=== PATIENT | female | born 1950 | race Caucasian/White ===

== ENCOUNTER 2020-07-25 09:15 | Emergency (ER) | payer MEDICARE, BC ==
[2020-07-25] MEDS ORDERED: Aspirin 81 MG Tab.Chew PO ONE (09:43)
--- NOTE | 2020-07-25 09:43 | EDM.PDOC ---
ED HPI GENERAL MEDICAL PROBLEM - General Chief Complaint: Chest Pain Stated Complaint: CHEST PAIN X 1 WEEK Time Seen by Provider: 07/25/20 09:35 - History of Present Illness INITIAL COMMENTS - FREE TEXT/NARRATIVE: 70-year-old female presents the emergency room with chest pain. This pain is been going on for about a week now. And does not seem to get any better. The patient was checked for Covid on Monday and treated for a sinus infection. On Monday she got the results of her Covid screen which were negative. Not had any fevers or chills she has had this chest discomfort. She describes it as burning sensation beneath her breastbone. This pain does not radiate into her shoulders is not associated with shortness of breath nausea or vomiting. Patient has no history of coronary artery disease. Her, the patient has a history of a racing heart she takes diltiazem and flecainide for this. She has some underlying lung disease and she is being worked up for alpha-1 antitrypsin deficiency as she has a family history of this. She is not had any lower extremity edema. She has not noticed any palpitations. Patient does not smoke and has never been a smoker. She is not aware of any family history of coronary artery disease. Middle Chest Pain Score (Numeric/FACES): 8 - Related Data Allergies Allergy/AdvReac Type Severity Reaction Status Date / Time metronidazole [From Flagyl] AdvReac Severe Stomach Verified 07/25/20 09:27 Upset Home Meds: Home Meds Albuterol [Ventolin HFA] 2 puff INH Q4H PRN 07/25/20 [History] Ampicillin [Principen] 0 mg PO BID 07/25/20 [History] Aspirin [Halfprin] 1 tab PO DAILY 07/25/20 [History] Budesonide/Formoterol Fumarate [Budesonide-Formoterol 80-4.5] 2 inh IH BID 07/25/20 [History] Calcium Carb, Citrate/Vit D3 [Calcium + D3 ER Tablet] 1 each PO DAILY 07/25/20 [History] Diltiazem HCl [Diltiazem 24Hr Cd] 240 mg PO DAILY 07/25/20 [History] Flecainide [Tambocor] 50 mg PO Q12H 07/25/20 [History] Fluticasone Propionate 2 inh NASBOTH DAILY 07/25/20 [History] Montelukast [Singulair] 10 mg PO DAILY 07/25/20 [History] Pantoprazole Sodium [Protonix] 20 mg PO DAILY 07/25/20 [History] Sodium Chlor,Bicarb/Nasl Rinse [Nasadock Plus Kit] 1 each NS BID 07/25/20 [History] Past Medical History HEENT History: Reports: Other (See Below) Other HEENT History: Pills stick in throat. 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 Social & Family History - Tobacco Use Tobacco Use Status *Q: Never Tobacco User - Caffeine Use Caffeine Use: Reports: Coffee - Recreational Drug Use Recreational Drug Use: No ED ROS GENERAL - Review of Systems Review Of Systems: See Below Constitutional: Reports: No Symptoms HEENT: Reports: Sinus Problem (This is much better after getting treatment) Respiratory: Reports: No Symptoms Cardiovascular: Reports: Chest Pain. Denies: No Symptoms Endocrine: Reports: No Symptoms GI/Abdominal: Reports: No Symptoms : Reports: No Symptoms, Other (Burning sensation in her chest) Musculoskeletal: Reports: No Symptoms Skin: Reports: No Symptoms Neurological: Reports: No Symptoms Psychiatric: Reports: No Symptoms Hematologic/Lymphatic: Reports: No Symptoms ED EXAM, GENERAL - Physical Exam Exam: See Below Exam Limited By: No Limitations General Appearance: Alert, No Apparent Distress Head: Atraumatic, Normocephalic Neck: Normal Inspection, Supple, Non-Tender, Full Range of Motion Respiratory/Chest: No Respiratory Distress, Lungs Clear, Normal Breath Sounds Cardiovascular: Regular Rate, Rhythm, No Edema, No Murmur GI/Abdominal: Normal Bowel Sounds, Soft, Non-Tender Extremities: Normal Inspection, Normal Range of Motion, Non-Tender Neurological: Alert, Oriented, Normal Cognition Psychiatric: Normal Affect, Normal Mood Course - Vital Signs Last Recorded V/S: Last Vital Signs Temp 36.3 C 07/25/20 09:23 Pulse 87 07/25/20 09:23 Resp 16 07/25/20 09:23 BP 154/74 H 07/25/20 09:23 Pulse Ox 97 07/25/20 09:23 - Orders/Labs/Meds Labs: Laboratory Tests 07/25/20 07/25/20 07/25/20 Range/Units 09:25 09:25 09:25 WBC 7.88 (3.98-10.04) K/mm3 RBC 4.50 (3.98-5.22) M/mm3 Hgb 12.9 (11.2-15.7) gm/dl Hct 40.1 (34.1-44.9) % MCV 89.1 (79.4-94.8) fl MCH 28.7 (25.6-32.2) pg MCHC 32.2 (32.2-35.5) g/dl RDW Std Deviation 45.3 (36.4-46.3) fL Plt Count 287 (182-369) K/mm3 MPV 9.7 (9.4-12.3) fl Neut % (Auto) 62.8 (34.0-71.1) % Lymph % (Auto) 27.8 (19.3-51.7) % Swisher % (Auto) 8.2 (4.7-12.5) % Eos % (Auto) 0.8 (0.7-5.8) Baso % (Auto) 0.3 (0.1-1.2) % Neut # (Auto) 4.95 (1.56-6.13) K/mm3 Lymph # (Auto) 2.19 (1.18-3.74) K/mm3 Swisher # (Auto) 0.65 H (0.24-0.36) K/mm3 Eos # (Auto) 0.06 (0.04-0.36) K/mm3 Baso # (Auto) 0.02 (0.01-0.08) K/mm3 PT 10.7 (9.7-12.0) SECONDS INR 1.00 APTT 24.6 (21.7-31.4) SECONDS D-Dimer, Quantitative (0.19-0.50) mg/L Sodium 139 (136-145) mEq/L Potassium 3.8 (3.5-5.1) mEq/L Chloride 102 (98-107) mEq/L Carbon Dioxide 27 (21-32) mEq/L Anion Gap 13.8 (5-15) BUN 15 (7-18) mg/dL Creatinine 0.9 (0.55-1.02) mg/dL Est Cr Clr Drug Dosing 46.00 mL/min Estimated GFR (MDRD) > 60 (>60) mL/min BUN/Creatinine Ratio 16.7 (14-18) Glucose 102 (80-115) mg/dL Calcium 9.2 (8.5-10.1) mg/dL Total Bilirubin 0.5 (0.2-1.0) mg/dL AST 19 (15-37) U/L ALT 23 (14-59) U/L Alkaline Phosphatase 55 (46-116) U/L Troponin I < 0.017 (0.00-0.056) ng/mL Total Protein 7.3 (6.4-8.2) g/dl Albumin 4.1 (3.4-5.0) g/dl Globulin 3.2 gm/dL Albumin/Globulin Ratio 1.3 (1-2) 07/25/20 Range/Units 09:25 WBC (3.98-10.04) K/mm3 RBC (3.98-5.22) M/mm3 Hgb (11.2-15.7) gm/dl Hct (34.1-44.9) % MCV (79.4-94.8) fl MCH (25.6-32.2) pg MCHC (32.2-35.5) g/dl RDW Std Deviation (36.4-46.3) fL Plt Count (182-369) K/mm3 MPV (9.4-12.3) fl Neut % (Auto) (34.0-71.1) % Lymph % (Auto) (19.3-51.7) % Swisher % (Auto) (4.7-12.5) % Eos % (Auto) (0.7-5.8) Baso % (Auto) (0.1-1.2) % Neut # (Auto) (1.56-6.13) K/mm3 Lymph # (Auto) (1.18-3.74) K/mm3 Swisher # (Auto) (0.24-0.36) K/mm3 Eos # (Auto) (0.04-0.36) K/mm3 Baso # (Auto) (0.01-0.08) K/mm3 PT (9.7-12.0) SECONDS INR APTT (21.7-31.4) SECONDS D-Dimer, Quantitative 0.48 (0.19-0.50) mg/L Sodium (136-145) mEq/L Potassium (3.5-5.1) mEq/L Chloride (98-107) mEq/L Carbon Dioxide (21-32) mEq/L Anion Gap (5-15) BUN (7-18) mg/dL Creatinine (0.55-1.02) mg/dL Est Cr Clr Drug Dosing mL/min Estimated GFR (MDRD) (>60) mL/min BUN/Creatinine Ratio (14-18) Glucose (80-115) mg/dL Calcium (8.5-10.1) mg/dL Total Bilirubin (0.2-1.0) mg/dL AST (15-37) U/L ALT (14-59) U/L Alkaline Phosphatase (46-116) U/L Troponin I (0.00-0.056) ng/mL Total Protein (6.4-8.2) g/dl Albumin (3.4-5.0) g/dl Globulin gm/dL Albumin/Globulin Ratio (1-2) Meds: Medications Discontinued Medications Generic Name Dose Route Start Last Admin Trade Name Freq PRN Reason Stop Dose Admin Aspirin 324 mg 07/25/20 09:43 07/25/20 10:03 Aspirin PO 07/25/20 09:44 324 mg ONETIME ONE Administration Al Hydroxide/Mg Hydroxide 30 0 ml 07/25/20 11:18 07/25/20 11:26 ml/ Lidocaine HCl 15 ml PO 07/25/20 11:19 45 ml ONETIME ONE Administration - Re-Assessments/Exams Free Text/Narrative Re-Assessment/Exam: 07/25/20 13:38 Chest x-ray is unrevealing troponin D-dimer negative. The patient does have a history of gastroesophageal reflux she was given a GI cocktail and she did not notice much improvement with this. Did discuss further lab testing such as a repeat troponin at this point however patient agrees that with this pain ongoing like this is probably not can tell us anything new. She does have a history of reflux and is taking Protonix 20 mg daily for this in case she has atrophic gastritis and recommended she start famotidine 20 mg twice a day and see if this helps the patient is in agreement to doing this and would like to go home Departure - Departure Time of Disposition: 13:40 Disposition: Home, Self-Care 01 Clinical Impression: Gastroesophageal reflux Referrals: PCP,Not In Area [Primary Care Provider] - Forms: ED Department Discharge Additional Instructions: Return to the emergency room with any questions problems or worsening symptoms. 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 Take 1 twice daily. If this helps significantly consider stopping the Protonix. Follow-up with your regular healthcare provider this next week. Discuss if cardiac stress testing would be indicated. And discuss improvements with your chest discomfort. Sepsis Event Note (ED) - Evaluation Sepsis Screening Result: No Definite Risk - Focused Exam Vital Signs: Vital Signs Temp Pulse Resp BP Pulse Ox 07/25/20 09:23 36.3 C 87 16 154/74 H 97
--- NOTE | 2020-07-25 10:20 | CR ---
Chest: Portable view of the chest was obtained. Comparison: No prior chest imaging is available. Findings: Heart and mediastinum: Heart and mediastinum are within normal limits for portable technique. No mediastinal mass is seen. Lungs: Minimal density is noted within the left upper lung most likely due to atelectasis or scarring. Lungs otherwise are clear without acute parenchymal change. Osseous: Prior right shoulder surgery is seen. No acute osseous finding is seen. Impression: 1. Findings as noted above. 2. Nothing acute is appreciated. Diagnostic code #2
[2020-07-25] MEDS ORDERED: Alum Hydrox/Mag Hydrox/Simeth 30 ML, Lidocaine 2% 15 ML PO ONE ×2 (11:18)
== END 2020-07-25 13:45 | disposition home or self-care (01) ==
LOC: JD.ED 09:15
DX: K21.9 Gastro-esophageal reflux disease without esophagitis (principal); J44.9 Chronic obstructive pulmonary disease, unspecified; Z79.82 Long term (current) use of aspirin; Z79.899 Other long term (current) drug therapy; Z88.1 Allergy status to other antibiotic agents
CPT/HCPCS: 36415; 71045; 80053; 84484; 85025; 85379; 85610; 85730; 99285; A9270; 99283

== ENCOUNTER 2020-08-25 10:35 | Emergency (ER) | payer MEDICARE, BC ==
[2020-08-25] MEDS ORDERED: Ketorolac 30 MG/ML SDV IM ONE (11:04)
[2020-08-25] MEDS ORDERED: Orphenadrine 100 MG Tab.ER PO STA (11:04)
--- NOTE | 2020-08-25 11:13 | EDM.PDOC ---
ED HPI GENERAL MEDICAL PROBLEM - General Chief Complaint: Back Pain or Injury Stated Complaint: BACK PAIN Time Seen by Provider: 08/25/20 10:47 Source of Information: Reports: Patient History Limitations: Reports: No Limitations - History of Present Illness INITIAL COMMENTS - FREE TEXT/NARRATIVE: 70-year-old female presents to the emergency department with complaints of upper back pain between her shoulder blades. Patient states this has been ongoing for the past 3 days but today has become unbearable. Patient states she developed this pain 3 days ago when she was taking down the [employer] tree and reaching for the ornaments. States the pain is so severe that she is unable to take a deep breath. Denies any history of trauma or injury. Reports chronic lower back pain and left hip pain. Has not been taking any medications for the pain has tried ice and heat and neither of them have helped her. Middle Back Pain Score (Numeric/FACES): 9 - Related Data Allergies Allergy/AdvReac Type Severity Reaction Status Date / Time metronidazole [From Flagyl] AdvReac Severe Stomach Verified 08/25/20 10:52 Upset Home Meds: Home Meds Albuterol [Ventolin HFA] 2 puff INH Q4H PRN 07/25/20 [History] Ampicillin [Principen] 0 mg PO BID 07/25/20 [History] Aspirin [Halfprin] 1 tab PO DAILY 07/25/20 [History] Budesonide/Formoterol Fumarate [Budesonide-Formoterol 80-4.5] 2 inh IH BID 07/25/20 [History] Calcium Carb, Citrate/Vit D3 [Calcium + D3 ER Tablet] 1 each PO DAILY 07/25/20 [History] Diltiazem HCl [Diltiazem 24Hr Cd] 240 mg PO DAILY 07/25/20 [History] Flecainide [Tambocor] 50 mg PO Q12H 07/25/20 [History] Fluticasone Propionate 2 inh NASBOTH DAILY 07/25/20 [History] Montelukast [Singulair] 10 mg PO DAILY 07/25/20 [History] Pantoprazole Sodium [Protonix] 20 mg PO DAILY 07/25/20 [History] Sodium Chlor,Bicarb/Nasl Rinse [Nasadock Plus Kit] 1 each NS BID 07/25/20 [History] traMADol [Ultram] 50 mg PO Q6H PRN #20 tab 08/25/20 [Rx] Past Medical History HEENT History: Reports: Other (See Below) Other HEENT History: Pills stick in throat. 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 Social & Family History - Tobacco Use Tobacco Use Status *Q: Never Tobacco User - Caffeine Use Caffeine Use: Reports: Coffee ED ROS GENERAL - Review of Systems Review Of Systems: See Below Constitutional: Reports: No Symptoms HEENT: Reports: No Symptoms, Glasses Respiratory: Reports: No Symptoms Cardiovascular: Reports: No Symptoms Endocrine: Reports: No Symptoms GI/Abdominal: Reports: No Symptoms : Reports: No Symptoms Musculoskeletal: Reports: Back Pain (Between her shoulder blades) Skin: Reports: No Symptoms Neurological: Reports: No Symptoms Psychiatric: Reports: No Symptoms Hematologic/Lymphatic: Reports: No Symptoms Immunologic: Reports: No Symptoms ED EXAM, UPPER BACK/NECK PAIN - Physical Exam Exam: See Below Exam Limited By: No Limitations General Appearance: Alert, WD/WN, No Apparent Distress Eye Exam: Bilateral Eye: PERRL Ears Exam: Hearing Grossly Normal Nose Exam: Normal Inspection Throat/Mouth Exam: Normal Voice, No Airway Compromise Head Exam: Atraumatic, Normocephalic Neck Exam: Non-Tender, Full Range of Motion, Normal Alignment, Normal Inspection, Paraspinous Muscle Tender (along the T3-T4). No: Spinous Processes Tender, Tender Midline GI/Abdominal: Normal Bowel Sounds, Soft, Non-Tender, No Distention (Female) Exam: Deferred Rectal (Female) Exam: Deferred Back Exam: Normal Inspection, Full Range of Motion Extremities: Normal Inspection, Normal Range of Motion, Non-Tender, No Pedal Edema, Normal Capillary Refill Neurologic: No Motor/Sensory Deficits, Alert, Normal Mood/Affect, Oriented x 3 Psychiatric: Normal Affect, Anxious Skin Exam: Normal Color, Warm/Dry Lymphatic: No Adenopathy Course - Vital Signs Text/Narrative:: I have ordered an x-ray of the cervical and thoracic spine. Patient will also receive Norflex 100 mg p.o. x1 dose and Toradol 30 mg IM x1 dose. Last Recorded V/S: Last Vital Signs Temp 97.8 F 08/25/20 10:50 Pulse 87 08/25/20 10:50 Resp 16 08/25/20 10:50 BP 129/79 08/25/20 10:50 Pulse Ox 98 08/25/20 10:50 - Orders/Labs/Meds Meds: Medications Discontinued Medications Generic Name Dose Route Start Last Admin Trade Name Kashmirq PRN Reason Stop Dose Admin Ketorolac Tromethamine 30 mg 08/25/20 11:04 08/25/20 11:15 Toradol IM 08/25/20 11:05 30 mg ONETIME ONE Administration Orphenadrine Citrate 100 mg 08/25/20 11:04 08/25/20 11:15 Norflex PO 08/25/20 11:05 100 mg STAT STA Administration - Radiology Interpretation Free Text/Narrative:: Cervical spine AP lateral and odontoid views radiology impression: 1. Diffuse degenerative change as noted above. Severe disc space narrowing is noted at C3- 4 through C7-T1. Anterior osteophytes are seen at these levels. Slight scattered posterior osteophytes are also noted. No abnormal subluxation is seen. 2. Scoliosis is present. Thoracic spine AP and lateral views radiology impression: 1. Mild scattered disc space narrowing and scoliosis. 2. Nothing acute is definitely seen. - Re-Assessments/Exams Free Text/Narrative Re-Assessment/Exam: 08/25/20 12:05 Nothing acute is noted or appreciated on cervical and thoracic x-rays. Patient will be discharged to home. Patient will be sent home with prescriptions for Norflex and tramadol. She will need to follow-up with her primary care provider. Departure - Departure Time of Disposition: 12:07 Disposition: Home, Self-Care 01 Condition: Good Clinical Impression: Back pain Qualifiers: Back pain location: thoracic back pain Chronicity: acute Back pain laterality: right Qualified Code(s): M54.6 - Pain in thoracic spine - Discharge Information Prescriptions: traMADol [Ultram] 50 mg PO Q6H PRN #20 tab PRN Reason: Pain (Moderate 4-6) Instructions: Acute Back Pain, Adult, Pain Medicine Instructions, [id number] Referrals: PCP,Not In Area [Primary Care Provider] - Forms: ED Department Discharge Additional Instructions: You were seen in the emergency department with complaints of back pain between your shoulder blades. X-ray does not reveal anything acute. You will need to follow-up with your primary care provider regarding this. Try using ice and heat to relieve the discomfort. You may take Tylenol 650 mg every 6 hours or ibuprofen 600 mg every 6 hours as needed for the discomfort. For more severe pain that is not relieved by these you can take tramadol 50 mg every 6 hours as needed. Please return to the emergency department should your condition worsen or change. Hospital Business Risk Consultant will contact you regarding consult. Sepsis Event Note (ED) - Evaluation Sepsis Screening Result: No Definite Risk - Focused Exam Vital Signs: Vital Signs Temp Pulse Resp BP Pulse Ox 08/25/20 10:50 97.8 F 87 16 129/79 98
--- NOTE | 2020-08-25 11:52 | CR ---
Thoracic spine: AP and lateral views of the thoracic spine were obtained. Comparison: No prior thoracic spine imaging. Scoliosis is noted. Mild disc space narrowing is scattered within the thoracic spine. Osteopenia is present. No discrete fracture or subluxation is seen. Impression: 1. Mild scattered disc space narrowing and scoliosis. 2. Nothing acute is definitely seen. Diagnostic code #2
--- NOTE | 2020-08-25 11:52 | CR ---
Cervical spine: AP, lateral and odontoid views of the cervical spine were obtained. Severe disc space narrowing is noted at C3-4 through C7-T1. Anterior osteophytes are seen at these levels. Slight scattered posterior osteophytes are also noted. No abnormal subluxation is seen. Scoliosis is noted within the spine. Impression: 1. Diffuse degenerative change as noted above. 2. Scoliosis is present. Diagnostic code #2
== END 2020-08-25 13:19 | disposition home or self-care (01) ==
LOC: JD.ED 10:35
DX: M54.6 Pain in thoracic spine (principal); J44.9 Chronic obstructive pulmonary disease, unspecified; K21.9 Gastro-esophageal reflux disease without esophagitis; Z88.1 Allergy status to other antibiotic agents; Z79.82 Long term (current) use of aspirin; Z79.899 Other long term (current) drug therapy
CPT/HCPCS: 72040; 72070; 96372; 99283; A9270; J1885

== ENCOUNTER 2021-06-19 09:14 | Emergency (ER) | payer MEDICARE, BC ==
--- NOTE | 2021-06-19 09:42 | EDM.PDOC ---
ED HPI GENERAL MEDICAL PROBLEM - General Chief Complaint: Respiratory Problem Stated Complaint: HEADACHE/DIZZY/NAUSEA/SOB Time Seen by Provider: 06/19/21 09:41 Source of Information: Reports: Patient History Limitations: Reports: No Limitations - History of Present Illness INITIAL COMMENTS - FREE TEXT/NARRATIVE: 71-year-old female presents to the ED with complaints of a persistent frontal headache daily for several months. History of recurrent sinus infection with previous sinus surgery with no benefit. Persistent postnasal drip and facial pressure compatible with sinus infection. Paroxysmal productive cough of white sputum. No noted fever or chills. Continues to lose weight slowly in spite of eating fairly well. Feels lightheaded and dizzy with mild component of vertigo symptoms. No falls. Onset: Other (Persistent chronic headache daily for many months. Associated persistent postnasal drip facial pressure discomfort compatible sinus infection. Associated sense of vertigo and feeling off balance.) Duration: Chronic, Getting Worse Location: Reports: Head, Face, Chest (Paroxysmal productive cough of white sputum) Quality: Reports: Ache (Persistent throbbing headache pain primarily bifrontal.), Throbbing Severity: Moderate Improves with: Reports: Medication (Tylenol helps a bit.) Worsens with: Reports: Other (She believes bending over makes the headache perhaps a little bit worse.) Context: Denies: Activity, Exercise, Lifting, Sick Contact, Trauma, Other Associated Symptoms: Reports: Cough, cough w sputum, Malaise. 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: Acetaminophen Headache Pain Score (Numeric/FACES): 5 - Related Data Allergies Allergy/AdvReac Type Severity Reaction Status Date / Time metronidazole [From Flagyl] AdvReac Severe Stomach Verified 06/19/21 09:47 Upset Home Meds: Home Meds Albuterol [Ventolin HFA] 2 puff INH Q4H PRN 07/25/20 [History] Budesonide/Formoterol Fumarate [Budesonide-Formoterol 80-4.5] 2 inh IH BID 07/25/20 [History] Calcium Carb, Citrate/Vit D3 [Calcium + D3 ER Tablet] 1 each PO DAILY 07/25/20 [History] Diltiazem HCl [Diltiazem 24Hr Cd] 240 mg PO DAILY 07/25/20 [History] Flecainide [Tambocor] 50 mg PO Q12H 07/25/20 [History] Fluticasone Propionate 2 inh NASBOTH DAILY 07/25/20 [History] Montelukast [Singulair] 10 mg PO DAILY 07/25/20 [History] Benzonatate [Tessalon Perle] 1 cap PO TID PRN 06/19/21 [History] estradioL [Yuvafem] 10 mg PO ASDIRECTED 06/19/21 [History] guaiFENesin [Mucinex] 600 mg PO BID 06/19/21 [History] predniSONE [Prednisone] 1 tab PO ASDIRECTED 06/19/21 [History] Past Medical History HEENT History: Reports: Sinusitis (Chronic sinusitis), Other (See Below) Other HEENT History: Pills stick in throat. 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 Denies: Fever, Chills, Decreased Appetite HEENT: Reports: Glasses, Rhinitis (Allergic rhinitis), Sinus Problem (Chronic sinus), Other (Postnasal drip) Respiratory: Reports: Cough (Persistent productive cough of white sputum). Denies: Wheezing, Pleuritic Chest Pain, Hemoptysis, Other Cardiovascular: Reports: Blood Pressure Problem, Lightheadedness. Denies: Claudication, Dyspnea on Exertion, Orthopnea, Palpitations Endocrine: Reports: Fatigue GI/Abdominal: Reports: No Symptoms : Reports: No Symptoms Musculoskeletal: Reports: Other (Mild arthritis knees hips neck and back) Skin: Reports: No Symptoms Neurological: Reports: Dizziness, Headache (Diffuse persistent frontal headache for many months). Denies: Confusion, Paresthesia, Pre-Existing Deficit, Seizure, Syncope, Tingling, Tremors, Trouble Speaking, Difficulty Walking, Weakness Psychiatric: Reports: No Symptoms Hematologic/Lymphatic: Reports: No Symptoms Immunologic: Reports: No Symptoms ED EXAM, GENERAL - Physical Exam Exam: See Below Exam Limited By: No Limitations General Appearance: Alert, WD/WN, No Apparent Distress, Anxious, Other (Mildly anxious temperature is 36.2 degrees heart rate 110 and sinus respiratory 20 with O2 sats of 96% room air BP 1 5292) Eye Exam: Bilateral Eye: Normal Inspection (No blepharal pallor or scleral icterus), PERRL Ears: Normal TMs Nose: Nasal Swelling (Swelling of the nasal turbinates middle and superior bilaterally) Throat/Mouth: Normal Inspection, Normal Lips, Normal Teeth, Normal Oropharynx Head: Atraumatic, Normocephalic Neck: Normal Inspection, Supple, Non-Tender, Full Range of Motion. No: Lymphadenopathy (L), Lymphadenopathy (R) Respiratory/Chest: Lungs Clear, Normal Breath Sounds, No Accessory Muscle Use, Respiratory Distress (Mild tachypnea), Other (Adductive sounding cough and she reports bringing up white sputum chronically.) Cardiovascular: Normal Peripheral Pulses, Regular Rate, Rhythm, No Edema, No Gallop, No Murmur, No Rub Peripheral Pulses: 2+: Posterior Tibial (L), Posterior Tibial (R), Dorsalis Pedis (L), Dorsalis Pedis (R), 3+: Carotid (L), Carotid (R) GI/Abdominal: Normal Bowel Sounds, Soft, Non-Tender, No Organomegaly, No Distention, No Abnormal Bruit, Other Back Exam: Normal Inspection, Full Range of Motion. No: CVA Tenderness (L), CVA Tenderness (R) Extremities: Normal Inspection, Normal Range of Motion, Non-Tender, No Pedal Edema Neurological: Alert, Oriented, CN II-XII Intact, Normal Cognition Psychiatric: Anxious (Mildly anxious.) Skin Exam: Warm, Dry, Intact, Normal Color, No Rash Course - Vital Signs Last Recorded V/S: Last Vital Signs Temp 36.2 C 06/19/21 09:28 Pulse 110 H 06/19/21 09:28 Resp 20 06/19/21 09:28 BP 152/92 H 06/19/21 09:28 Pulse Ox 96 06/19/21 09:28 Orthostatic Blood Pressure [ 120/77 Standing] Orthostatic Blood Pressure [ 127/69 Sitting] - Orders/Labs/Meds Labs: Laboratory Tests 06/19/21 06/19/21 06/19/21 Range/Units 09:25 10:09 10:09 WBC 6.09 (3.98-10.04) K/mm3 RBC 4.71 (3.98-5.22) M/mm3 Hgb 13.4 (11.2-15.7) gm/dl Hct 41.2 (34.1-44.9) % MCV 87.5 (79.4-94.8) fl MCH 28.5 (25.6-32.2) pg MCHC 32.5 (32.2-35.5) g/dl RDW Std Deviation 45.6 (36.4-46.3) fL Plt Count 324 (182-369) K/mm3 MPV 9.3 L (9.4-12.3) fl Neut % (Auto) 61.7 (34.0-71.1) % Lymph % (Auto) 26.6 (19.3-51.7) % Er[place] % (Auto) 10.0 (4.7-12.5) % Eos % (Auto) 1.0 (0.7-5.8) Baso % (Auto) 0.2 (0.1-1.2) % Neut # (Auto) 3.76 (1.56-6.13) K/mm3 Lymph # (Auto) 1.62 (1.18-3.74) K/mm3 Erath # (Auto) 0.61 H (0.24-0.36) K/mm3 Eos # (Auto) 0.06 (0.04-0.36) K/mm3 Baso # (Auto) 0.01 (0.01-0.08) K/mm3 Sodium 139 (136-145) mEq/L Potassium 3.7 (3.5-5.1) mEq/L Chloride 104 (98-107) mEq/L Carbon Dioxide 29 (21-32) mEq/L Anion Gap 9.7 (5-15) BUN 13 (7-18) mg/dL Creatinine 0.9 (0.55-1.02) mg/dL Est Cr Clr Drug Dosing 49.51 mL/min Estimated GFR (MDRD) > 60 (>60) mL/min BUN/Creatinine Ratio 14.4 (14-18) Glucose 138 H (70-99) mg/dL Calcium 8.8 (8.5-10.1) mg/dL Magnesium 1.9 (1.8-2.4) mg/dL Total Bilirubin 0.2 (0.2-1.0) mg/dL AST 8 L (15-37) U/L ALT 18 (14-59) U/L Alkaline Phosphatase 50 (46-116) U/L C-Reactive Protein <0.2 (<1.0) mg/dL NT-Pro-B Natriuret Pep (0-125) pg/mL Total Protein 6.6 (6.4-8.2) g/dl Albumin 3.4 (3.4-5.0) g/dl Globulin 3.2 gm/dL Albumin/Globulin Ratio 1.1 (1-2) TSH 3rd Generation 0.962 (0.358-3.74) uIU/mL Influenza Type A RNA Negative (NEGATIVE) Influenza Type B RNA Negative (NEGATIVE) SARS-CoV-2 RNA (RONI) Negative (NEGATIVE) 06/19/21 Range/Units 10:09 WBC (3.98-10.04) K/mm3 RBC (3.98-5.22) M/mm3 Hgb (11.2-15.7) gm/dl Hct (34.1-44.9) % MCV (79.4-94.8) fl MCH (25.6-32.2) pg MCHC (32.2-35.5) g/dl RDW Std Deviation (36.4-46.3) fL Plt Count (182-369) K/mm3 MPV (9.4-12.3) fl Neut % (Auto) (34.0-71.1) % Lymph % (Auto) (19.3-51.7) % Erath % (Auto) (4.7-12.5) % Eos % (Auto) (0.7-5.8) Baso % (Auto) (0.1-1.2) % Neut # (Auto) (1.56-6.13) K/mm3 Lymph # (Auto) (1.18-3.74) K/mm3 Erath # (Auto) (0.24-0.36) K/mm3 Eos # (Auto) (0.04-0.36) K/mm3 Baso # (Auto) (0.01-0.08) K/mm3 Sodium (136-145) mEq/L Potassium (3.5-5.1) mEq/L Chloride (98-107) mEq/L Carbon Dioxide (21-32) mEq/L Anion Gap (5-15) BUN (7-18) mg/dL Creatinine (0.55-1.02) mg/dL Est Cr Clr Drug Dosing mL/min Estimated GFR (MDRD) (>60) mL/min BUN/Creatinine Ratio (14-18) Glucose (70-99) mg/dL Calcium (8.5-10.1) mg/dL Magnesium (1.8-2.4) mg/dL Total Bilirubin (0.2-1.0) mg/dL AST (15-37) U/L ALT (14-59) U/L Alkaline Phosphatase (46-116) U/L C-Reactive Protein (<1.0) mg/dL NT-Pro-B Natriuret Pep 19 (0-125) pg/mL Total Protein (6.4-8.2) g/dl Albumin (3.4-5.0) g/dl Globulin gm/dL Albumin/Globulin Ratio (1-2) TSH 3rd Generation (0.358-3.74) uIU/mL Influenza Type A RNA (NEGATIVE) Influenza Type B RNA (NEGATIVE) SARS-CoV-2 RNA (RONI) (NEGATIVE) Meds: Medications Discontinued Medications Generic Name Dose Route Start Last Admin Trade Name Freq PRN Reason Stop Dose Admin Sodium Chloride 10 ml 06/19/21 09:52 Sodium Chloride 0.9% 10 Ml Syringe FLUSH ASDIRECTED PRN Keep Vein Open - Radiology Interpretation Free Text/Narrative:: 71-year-old female attends the ED with chronic symptoms of persistent frontal headache nasal congestion due to chronic sinusitis chronic allergic rhinitis. Paroxysmal productive cough of white sputum combined with persistent postnasal d rip. She reports multiple doctors have seen her and she has been prescribed many medications without any relief of symptoms. She has had previous sinus surgery greater than 10 years ago. She feels lightheaded and off-balance at times. She has not fallen. I believe that she suffers from mild vertigo. She is continue to lose weight in spite of a good appetite. No change in bowel habits. She is a never smoker. She does cough frequently during our interview bringing up some white sputum no hemoptysis. Tenderness on palpation of the maxillary and frontal sinuses. Plan CT head CT maxillofacial sinuses. Chest x- ray to be done. Routine labs to include CRP and BNP. - Re-Assessments/Exams Free Text/Narrative Re-Assessment/Exam: 06/19/21 10:56 CT of the head without contrast completed. It reveals mild amount of decreased attenuation is present within the periventricular white matter compared with the patient's age. Finding is nonspecific but most often is seen in chronic small vessel ischemic demyelination changes. No acute hemorrhage or infarct identified. There is no intracranial mass, mass-effect or midline shift or edema. There are no abnormal extra-axial fluid collections. The ventricles and sulci are mildly prominent consistent with global volume loss due to atrophy. Visualized sinuses are unremarkable with no fluid levels. Visualized mastoid air cells are unremarkable as well. Bones and joints are unremarkable CT of the maxillofacial sinuses shows a polyp in the inferior portion of the left maxillary sinus. There is slight thickening throughout the ethmoids and sphenoid sinuses but nothing occlusive. Frontal sinuses are clear. Chest x-ray is within normal limits with no cardiomegaly and mediastinum normal. Lung parenchyma are clear. 06/19/21 12:17 White count is normal at 6.09. Auto differential reveals 61.7% neutrophils. Hemoglobin is 13.4. Platelet count is 324,000. Sodium 139 with a potassium of 3.7. Chloride is 104 with a bicarb of 29. Anion gap is 9.7. BUN is 13 with a creatinine of 0.9 and a GFR greater than 60. Glucose is 138. Calcium is 8.8 with a magnesium of 1.9. Total bilirubin is 0.2 liver function otherwise normal. CRP is less than 0.2 BNP is 19. Total protein 6.6 with an albumin fraction of 3.4 TSH is normal at 0.962. Influenza and COVID-19 screen were negative. Orthostatic blood pressures revealed BP to be 116/67 with a heart rate of 80 supine sitting 127/69 with a heart rate of 85 standing BP 120/77 with a heart rate of 95. This is while she is blocked by calcium channel lindsey diltiazem. 06/19/21 12:34 I have discussed the findings of the labs and the CT scans of her maxillofacial sinuses and head with no positive findings. Lab tests are also normal. I strongly believe current symptoms of dizziness, lightheadedness and daily chronic headache are secondary to medications diltiazem and flecainide which he has been on for about 6 years due to cardiac arrhythmia. She is followed up by discharging machine operator Dr. Nunez in [place] on I am going to have her follow-up with him to discuss potential other options of medications versus ablation procedure. I believe with her recent weight loss that she is experiencing even more side effects. Chronic daily headache and persistent lightheadedness and dizziness feeling are both strong common side effects of fl ecainide and diltiazem. Departure - Departure Time of Disposition: 12:37 Disposition: Home, Self-Care 01 Condition: Fair Clinical Impression: Chronic daily headache, Dizzinesses Adverse effects of medication Qualifiers: Encounter type: initial encounter Qualified Code(s): T50.905A - Adverse effect of unspecified drugs, medicaments and biological substances, initial encounter - Discharge Information *PRESCRIPTION DRUG MONITORING PROGRAM REVIEWED*: Not Applicable *COPY OF PRESCRIPTION DRUG MONITORING REPORT IN PATIENT KAY: Not Applicable Instructions: General Headache Without Cause, [id number], Dizziness, [id number] Referrals: PCP,Not In Area [Primary Care Provider] - Forms: ED Department Discharge Additional Instructions: Evaluation in the emergency room today in regards to persistent symptoms for several months which are gradually worsening. This includes almost headache on a daily basis particular across the frontal aspect of your head associate with recurrent lightheadedness and dizzy spells which make you fearful to climb on any minimal step ladder etc. CT scan of the brain today is normal. CT scan of the maxillofacial sinuses was also normal other than a chronic low-grade infec tion in the inferior portion of the left maxillary sinus which is dose of no consequence. Previous surgical procedures are your sinuses reveal the ostia the drain the maxillary sinuses to be widely patent and the surgery was done very well. Lab test also proved no major abnormalities identified particular with your thyroid gland to account for recent weight loss. I strongly believe current symptoms are due to adverse effects of medication flecainide and diltiazem which you have been on for 6 or 7 years due to heart rhythm problems. They are both potential culprits and causing chronic daily headache and particularly lightheadedness and dizziness feeling. Therefore you need to follow-up with your discharging machine operator Dr. Nunez with a view to possible change in medications if this is a option versus consideration of ablation of the extra pathway in your heart so that she would not need medication at all.
[2021-06-19] MEDS ORDERED: Sodium Chloride 0.9% 10 ML Syringe FLUSH PRN (09:52)
[2021-06-19 10:18] LABS: CORONAVIRUS COVID-19 NAA NEGATIVE (NEGATIVE)
--- NOTE | 2021-06-20 07:43 | CR ---
Chest: Portable view of the chest was obtained. Comparison: Prior chest x-ray of 07/25/20. Heart size and mediastinum are within normal limits. Lungs are clear but hyperinflated. Prior right shoulder surgery is noted. Minimal scoliosis is noted within the spine. Osteopenia is present. Impression: 1. Possible emphysematous change. 2. No acute intrathoracic process is seen on portable chest x-ray. Diagnostic code #2
--- NOTE | 2021-06-20 07:55 | CT ---
Head CT Technique: Multiple axial sections through the brain were obtained. Intravenous contrast was not utilized. Reconstructed coronal and sagittal images were obtained. Comparison: No prior head CT study is available. Findings: Ventricles along with basal cisterns and sulci over the convexities are mildly prominent. Minimal diminished density is noted within the periventricular white matter which is most likely due to small vessel ischemic demyelination change. No other abnormal parenchymal densities are seen. No evidence of intracranial hemorrhage is seen. No midline shift or mass-effect is seen. Bone window settings were reviewed. Visualized mastoid sinuses and paranasal sinuses show nothing acute. No acute calvarial abnormality is appreciated. Impression: 1. Mild senescent change as noted above. 2. No acute intracranial abnormality is appreciated. If patient remains symptomatic, MRI could then be obtained. Diagnostic code #2 I agree with preliminary report from [facility], finalized on 06/19/21, 11:53 AM CDT, code 1
--- NOTE | 2021-06-20 08:20 | CT ---
CT paranasal sinuses Technique: Multiple axial sections through the paranasal sinuses were obtained. Reconstructed coronal and sagittal images were obtained. Comparison: Prior CT sinus study of 01/20/20. Findings: Small retention cyst is noted within the inferior left maxillary sinus measuring 1.0 cm. This is stable from prior study. Minimal mucosal thickening is seen within the upper left maxillary sinus. Other portions of the paranasal sinuses are clear. Nasal septal deviation is seen. No air-fluid levels are seen. Postsurgical widening of the left maxillary ostia is seen. Impression: 1. Mild mucosal thickening within the upper left maxillary sinus as well as retention cyst within the lower left maxillary sinus. Prior surgery is seen within the ostia of the left maxillary sinus. 2. Nasal septal deviation is seen. 3. No acute abnormality is otherwise appreciated on CT study of the paranasal sinuses. Diagnostic code #2 I agree with preliminary report from [facility], finalized on 06/19/21, 11:55 AM CDT, code 1
== END 2021-06-19 12:50 | disposition home or self-care (01) ==
LOC: JD.ED 09:14
DX: R51.9 Headache, unspecified (principal); T50.905A Adverse effect of unspecified drugs, medicaments and biological substances, initial encounter; R42 Dizziness and giddiness; J44.9 Chronic obstructive pulmonary disease, unspecified; Z88.8 Allergy status to other drugs, medicaments and biological substances; Z20.822 Contact with and (suspected) exposure to COVID-19; R53.83 Other fatigue; R06.00 Dyspnea, unspecified
CPT/HCPCS: 0240U; 36415; 70450; 70486; 71045; 80053; 83735; 83880; 84443; 85025; 86140; 99284; 99283

== ENCOUNTER 2021-08-08 16:37 | Emergency (ER) | payer MEDICARE, BC ==
[2021-08-08] MEDS ORDERED: Ketorolac 30 MG/ML SDV IM ONE (17:27)
[2021-08-08] MEDS ORDERED: Orphenadrine 100 MG Tab.ER PO ONE (17:27)
--- NOTE | 2021-08-08 17:45 | EDM.PDOC ---
ED HPI GENERAL MEDICAL PROBLEM - General Chief Complaint: Back Pain or Injury Stated Complaint: BACK PAIN Time Seen by Provider: 08/08/21 17:04 Source of Information: Reports: Patient History Limitations: Reports: No Limitations - History of Present Illness INITIAL COMMENTS - FREE TEXT/NARRATIVE: The patient present with mid back pain. This started today. She does not think she hurt her back. She did not fall. She has been doing some baking. She said this happened a few months ago and she was given some meds from here and it helped. She had x-rays then that looked good. She has no numbness or weakness. She has no fever, chills, cough, chest pain, shortness of breath, nausea or vomiting. Onset: Gradual Duration: Hour(s): Location: Reports: Back Quality: Reports: Sharp Severity: Moderate Improves with: Reports: Immobilization Worsens with: Reports: Movement Associated Symptoms: Reports: No Other Symptoms Middle Back Pain Score (Numeric/FACES): 10 - Related Data Allergies Allergy/AdvReac Type Severity Reaction Status Date / Time metronidazole [From Flagyl] AdvReac Severe Stomach Verified 08/08/21 17:10 Upset Home Meds: Home Meds Albuterol [Ventolin HFA] 2 puff INH Q4H PRN 07/25/20 [History] Budesonide/Formoterol Fumarate [Budesonide-Formoterol 80-4.5] 2 inh IH BID 07/25/20 [History] Calcium Carb, Citrate/Vit D3 [Calcium + D3 ER Tablet] 1 each PO DAILY 07/25/20 [History] Diltiazem HCl [Diltiazem 24Hr Cd] 240 mg PO DAILY 07/25/20 [History] Flecainide [Tambocor] 50 mg PO Q12H 07/25/20 [History] Fluticasone Propionate 2 inh NASBOTH DAILY 07/25/20 [History] Montelukast [Singulair] 10 mg PO DAILY 07/25/20 [History] Benzonatate [Tessalon Perle] 1 cap PO TID PRN 06/19/21 [History] estradioL [Yuvafem] 10 mg PO ASDIRECTED 06/19/21 [History] guaiFENesin [Mucinex] 600 mg PO BID 06/19/21 [History] predniSONE [Prednisone] 1 tab PO ASDIRECTED 06/19/21 [History] Orphenadrine [Norflex] 100 mg PO BID PRN #20 tab 08/08/21 [Rx] Past Medical History HEENT History: Reports: Sinusitis, Other (See Below) Other HEENT History: Pills stick in throat. 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) ED ROS GENERAL - Review of Systems Review Of Systems: See Below Constitutional: Reports: No Symptoms HEENT: Reports: No Symptoms Respiratory: Reports: No Symptoms Cardiovascular: Reports: No Symptoms Endocrine: Reports: No Symptoms GI/Abdominal: Reports: No Symptoms : Reports: No Symptoms Musculoskeletal: Reports: Back Pain Skin: Reports: No Symptoms Neurological: Reports: No Symptoms ED EXAM, UPPER BACK/NECK PAIN - Physical Exam Exam: See Below Exam Limited By: No Limitations General Appearance: Alert, No Apparent Distress Ears Exam: Normal External Exam Nose Exam: Normal Inspection Head Exam: Atraumatic, Normocephalic Cardiovascular/Respiratory: Regular Rate, Rhythm, No M/R/G, Normal Breath Sounds , No Respiratory Distress GI/Abdominal: Soft, Non-Tender, No Organomegaly Back Exam: Other (Pain upon palpation to the mid thoracic spine on the right side) Extremities: Normal Inspection Course - Vital Signs Last Recorded V/S: Last Vital Signs Temp 97.7 F 08/08/21 17:09 Pulse 92 08/08/21 17:09 Resp 18 08/08/21 17:09 BP 137/70 08/08/21 17:09 Pulse Ox 95 08/08/21 17:09 - Orders/Labs/Meds Meds: Medications Discontinued Medications Generic Name Dose Route Start Last Admin Trade Name Freq PRN Reason Stop Dose Admin Ketorolac Tromethamine 30 mg 08/08/21 17:27 08/08/21 17:50 Ketorolac 30 Mg/Ml Sdv IM 08/08/21 17:28 30 mg ONETIME ONE Administration Orphenadrine Citrate 100 mg 08/08/21 17:27 08/08/21 17:50 Orphenadrine 100 Mg Tab.Er PO 08/08/21 17:28 100 mg ONETIME ONE Administration - Re-Assessments/Exams Free Text/Narrative Re-Assessment/Exam: 08/08/21 17:44 I ordered norflex and toradol 60mg IM. 08/08/21 18:18 She feels much better. The pain is gone. I will give her a prescription for norflex. Departure - Departure Time of Disposition: 18:20 Disposition: Home, Self-Care 01 Condition: Good Clinical Impression: Back pain Qualifiers: Back pain location: thoracic back pain Chronicity: acute Back pain laterality: right Qualified Code(s): M54.6 - Pain in thoracic spine - Discharge Information *PRESCRIPTION DRUG MONITORING PROGRAM REVIEWED*: Not Applicable *COPY OF PRESCRIPTION DRUG MONITORING REPORT IN PATIENT KAY: Not Applicable Prescriptions: Orphenadrine [Norflex] 100 mg PO BID PRN #20 tab PRN Reason: Pain Referrals: PCP,Not In Area [Primary Care Provider] - Forms: ED Department Discharge Additional Instructions: Take tylenol or mtorin for pain. If that does not help, try the norflex 100mg 2 times per day. Follow up with your provider. Please return if you are worse. Sepsis Event Note (ED) - Focused Exam Vital Signs: Vital Signs Temp Pulse Resp BP Pulse Ox 08/08/21 17:09 97.7 F 92 18 137/70 95
== END 2021-08-08 18:32 | disposition home or self-care (01) ==
LOC: JD.ED 16:37
DX: M54.6 Pain in thoracic spine (principal); K21.9 Gastro-esophageal reflux disease without esophagitis; J44.1 Chronic obstructive pulmonary disease with (acute) exacerbation; Z79.899 Other long term (current) drug therapy
CPT/HCPCS: 96372; 99283; A9270; J1885

== ENCOUNTER 2021-11-10 11:01 | Emergency (ER) | payer MEDICARE, BC ==
[2021-11-10] MEDS ORDERED: Sodium Chloride 0.9% 10 ML Syringe FLUSH PRN (11:27)
[2021-11-10] MEDS ORDERED: LORazepam 2 MG/ML SDV IVPUSH ONE (11:33)
== END 2021-11-10 12:45 | disposition home or self-care (01) ==
LOC: JD.ED 11:01
DX: R07.2 Precordial pain (principal); F41.9 Anxiety disorder, unspecified; J44.9 Chronic obstructive pulmonary disease, unspecified; Z88.1 Allergy status to other antibiotic agents
CPT/HCPCS: 36415; 71045; 80053; 83735; 83880; 84484; 85025; 85379; 85610; 85730; 96374; 99285; J2060

== ENCOUNTER 2022-02-01 18:29 | Emergency (ER) | payer MEDICARE, BC ==
[2022-02-01] MEDS ORDERED: Orphenadrine 100 MG Tab.ER PO STA (19:11)
[2022-02-01] MEDS ORDERED: Ibuprofen 600 MG Tab PO ONE (19:11)
== END 2022-02-01 19:34 | disposition home or self-care (01) ==
LOC: JD.ED 18:29
DX: S16.1XXA Strain of muscle, fascia and tendon at neck level, initial encounter (principal); J45.909 Unspecified asthma, uncomplicated; Z88.1 Allergy status to other antibiotic agents; Z79.899 Other long term (current) drug therapy; X58.XXXA Exposure to other specified factors, initial encounter
CPT/HCPCS: 99283; A9270

== ENCOUNTER 2022-07-02 09:14 | Emergency (ER) | payer MEDICARE, BC ==
[2022-07-02 11:12] LABS: ESTIMATED GFR 78 mL/min (>60)
== END 2022-07-02 13:45 | disposition home or self-care (01) ==
LOC: JD.ED 09:14
DX: J01.41 Acute recurrent pansinusitis (principal); R00.2 Palpitations; R00.0 Tachycardia, unspecified; I45.10 Unspecified right bundle-branch block; J44.9 Chronic obstructive pulmonary disease, unspecified; Z88.1 Allergy status to other antibiotic agents; Z79.899 Other long term (current) drug therapy
CPT/HCPCS: 36415; 71045; 71045-26; 80053; 82553; 83735; 83880; 84484; 85025; 86140; 93005; 99285

== ENCOUNTER 2022-11-23 08:00 | Emergency (ER) | payer MEDICARE, BC ==
[2022-11-23] MEDS ORDERED: Ketorolac 30 MG/ML SDV IM ONE (08:16)
[2022-11-23] MEDS ORDERED: HYDROmorphone 0.5 MG/0.5 ML Syringe IM ONE (08:59)
== END 2022-11-23 10:50 | disposition home or self-care (01) ==
LOC: JD.ED 08:00
DX: M54.6 Pain in thoracic spine (principal); J44.9 Chronic obstructive pulmonary disease, unspecified; Z88.1 Allergy status to other antibiotic agents
CPT/HCPCS: 96372; 99283; J1170; J1885

== ENCOUNTER 2022-12-16 09:50 | Emergency (ER) | payer MEDICARE, BC ==
[2022-12-16] MEDS ORDERED: Cyclobenzaprine 10 MG Tab PO ONE (11:20)
[2022-12-16] MEDS ORDERED: Ketorolac 60 MG/2 ML SDV IM ONE (11:20)
== END 2022-12-16 13:07 | disposition home or self-care (01) ==
LOC: JD.ED 09:50
DX: M54.6 Pain in thoracic spine (principal); M62.830 Muscle spasm of back; J44.9 Chronic obstructive pulmonary disease, unspecified; Z88.8 Allergy status to other drugs, medicaments and biological substances
CPT/HCPCS: 96372; 99283; A9270; J1885

== ENCOUNTER 2025-06-15 17:53 | Emergency (ER) | payer MEDICARE, BC ==
[2025-06-15] MEDS: Ketorolac 30 MG/ML SDV IM ONE (18:41)
== END 2025-06-15 20:58 | disposition home or self-care (01) ==
LOC: JD.ED 17:53
DX: M62.830 Muscle spasm of back (principal); J44.89 Other specified chronic obstructive pulmonary disease; Z86.16 Personal history of COVID-19; Z88.1 Allergy status to other antibiotic agents; Z79.899 Other long term (current) drug therapy; Z79.51 Long term (current) use of inhaled steroids
CPT/HCPCS: 96372; 99283; A9270; J1885